=== PATIENT | female | born 1970 | race Caucasian/White ===

== ENCOUNTER 2023-07-24 09:02 | Day surgery (SDC) | payer BC ==
[2023-07-17 09:52] VITALS: BMI 29.6
[2023-07-24] MEDS ORDERED: PROPOFOL 20 ML ONE ×3 (10:51→12:44)
[2023-07-24] MEDS ORDERED: Lidocaine 1% PF 5 ML VIAL ONE (10:52)
[2023-07-24] MEDS ORDERED: fentaNYL PF 100 MCG/2 ML SYRINGE ONE ×2 (11:38→12:23)
[2023-07-24] MEDS ORDERED: Sodium Chloride 0.9% 100 ML ONE (11:53)
[2023-07-24] MEDS ORDERED: cefOXitin 2 GM VIAL ONE (11:53)
[2023-07-24] MEDS ORDERED: Lidocaine 2% 6 ML (Jelly) SYR ONE (12:02)
[2023-07-24] MEDS ORDERED: Rocuronium Bromide 10 MG/ML (10ML VIAL) ONE (12:03)
[2023-07-24] MEDS ORDERED: Dexamethasone 4 mg/ml Vial ONE (12:07)
[2023-07-24] MEDS ORDERED: Ondansetron PF 4 MG/2 ML Vial ONE (12:08)
[2023-07-24] MEDS ORDERED: Ketorolac Tromethamine 30 MG (1 mL) VIAL ONE (12:38)
[2023-07-24] MEDS ORDERED: SUGAMMADEX SODIUM 200 MG/2 ML VIAL ONE (12:53)
[2023-07-24] MEDS ORDERED: HYDROcodone/Acetaminophen 5/325 mg Tablet ONE (14:23)
== END 2023-07-24 15:08 | disposition home or self-care (01) ==
LOC: SDC 09:02
PROVIDERS: ATTEND Surgery
PROC: 06BY0ZC Excision of Hemorrhoidal Plexus, Open Approach (ICD-10-PCS; principal; 2023-07-24)
DX: K64.8 Other hemorrhoids (principal); M19.90 Unspecified osteoarthritis, unspecified site; F32.A Depression, unspecified; Z90.710 Acquired absence of both cervix and uterus; Z87.891 Personal history of nicotine dependence; Z88.8 Allergy status to other drugs, medicaments and biological substances; Z79.899 Other long term (current) drug therapy
CPT/HCPCS: 88304; J0694; J1100; J1885; J2405; J2704; J3490